=== PATIENT | male | born 1970 | race Caucasian/White ===

== ENCOUNTER 2021-01-22 04:10 | Inpatient (IN) | payer OTHER ==
[~2021-01-22] VITALS: Ht 175.3 cm; Wt 83.9 kg
--- NOTE | ~2021-01-22 | OP ---
[address] [address] OPERATIVE REPORT Name: YOGI VALADEZ Room: [address] IN M.R.#: [id number] Admission: 01/22/21 Attend Phys: Joshua Fields MD Discharge: Date of : 70 Report #: [id number] THIS REPORT FOR: cc: Physician not on staff Physician not on staff Leonard Cardozo MD ~ DATE OF SURGERY: 01/23/2021 PREOPERATIVE DIAGNOSIS: A 4 mm mid left ureteral stone. POSTOPERATIVE DIAGNOSIS: A 4 mm distal left ureteral stone. PROCEDURES: Cystoscopy, left retrograde pyelogram, left ureteroscopy with ureteroscopic stone extraction, placement of left ureteral stent with attached string. STAFF SURGEON: Leonard Cardozo MD HOUSEHOLD PERSONAL ASSISTANT: None. ANESTHESIA: General. ESTIMATED BLOOD LOSS: None. COMPLICATIONS: None. SPECIMENS: Left ureteral stone fragment. DRAINS: A 28 cm x 4.8-Singaporean left ureteral stent with attached string. INDICATIONS FOR PROCEDURE: A 50-year-old white male presented with left-sided flank pain. CT scan confirmed a 4 mm stone in the proximal to mid left ureter. Pain has improved overnight. He has not documented passing and he was counseled regarding treatment options, elected for definitive cystoscopy, left retrograde pyelogram, left ureteroscopy, possible holmium laser lithotripsy, possible placement of left ureteral stent. After risks and benefits of the procedure explained and informed consent was obtained. DESCRIPTION OF PROCEDURE: The patient was taken to the operating room comfortably placed in the dorsal lithotomy position under adequate general anesthesia. He was sterilely prepped and draped in standard fashion exposing only genitalia. He received his antibiotic therapy as prescribed. Appropriate timeout was carried out and all were in agreement for left-sided stone management. A 22-Singaporean cystoscope was placed in the urethra. Anterior urethra normal, sphincter intact. Prostate showed some minimal hyperplasia. Bladder was systematically viewed. Both ureteral [place] [address] OPERATIVE REPORT Name: YOGI VALADEZ Room: [address] IN M.R.#: [id number] Admission: 01/22/21 Attend Phys: Joshua Fields MD Discharge: Date of : 70 Report #: [id number] bladder calculi seen or formed. Bladder mucosa was smooth without any irregularity. An 8-Singaporean cone-tipped catheter placed in the left ureteral orifice and a retrograde pyelogram showing a filling defect near the ureterovesical junction with dilation more proximally. An 0.035 Glidewire was advanced up the left ureter at the level of kidney. The cystoscope was removed and a 5-Singaporean tapered to a 6.5-Singaporean Muro semi-rigid ureteroscope advanced through the urethra into the transmural ureter up the left ureter, identifying the stone. Cystoscope was tapered, slowly advanced the ureteroscope up the left ureter above the pelvis and mid ureter verifying no other stones present. I used the scope to dilate the transmural ureter slightly. Ureteroscope was then brought down back to the scope, able to basket with a 2.4 Singaporean flat wire basket, gently removed it without difficulty. The cystoscope was backloaded over the guidewire and a 28 cm x 4.8-Singaporean ureteral stent was put in place and positioned with the upper part of the stent at the level of the kidney and the lower part of the stent in the bladder. He tolerated extremely well. Bladder was drained. String left attached, secured to the outside of the phallus with a Tegaderm. Lidocaine jelly was placed in the urethra. He was extubated in the operating room, transferred to [facility] with assistance and went to recovery in stable condition. By: [id number] [id number] Consuelo Cardozo MD /madelyn
[2021-01-22 04:32] VITALS: BP 161/90
[2021-01-22] MEDS ORDERED: CARVEDILOL12.5 MG PO (04:53)
[2021-01-22] MEDS ORDERED: BRILINTA90 MG PO (04:55)
[2021-01-22] MEDS ORDERED: LISINOPRIL10 MG PO (04:55)
[2021-01-22] MEDS ORDERED: FENOFIBRATE150 MG PO (04:56)
[2021-01-22] MEDS ORDERED: OMEPRAZOLE40 MG PO (04:56)
[2021-01-22] MEDS ORDERED: CHILDREN'S ASPI81 M1 PO (04:56)
[2021-01-22] MEDS ORDERED: PRALUENT P75 MG/1 ML (05:00)
[2021-01-22] MEDS ORDERED: OMNIPOD1 EACH SUBQ (05:03)
[2021-01-22 05:08] LABS: ABSOLUTE BASOPHILS 0.2 thou/uL (0.0-0.2); ABSOLUTE EOSINOPHILS 0.5 thou/uL (0.0-0.7); ABSOLUTE LYMPHOCYTES 2.3 thou/uL (0.8-5.3); ABSOLUTE MONOCYTES 1.1 thou/uL (0.0-1.2); ABSOLUTE NEUTROPHILS 9.1 thou/uL (1.6-8.1); BASOPHILS 1.2 %; EOSINOPHILS 3.7 %; LYMPHOCYTES 17.5 %; MCH 28.6 pg (26.0-34.0); MCHC 35.5 g/dL (28.0-37.0); MCV 80.7 fL (80.0-100.0); MONOCYTES 8.3 %; NUCLEATED RBCS 0 /100WBC; PLATELET COUNT* 369 thou/uL (150-400); POLYS 69.3 %; RBC 5.58 mil/uL (4.50-6.00); RDW-CV 13.9 % (10.5-14.5); WBC 13.1 thou/uL (4.0-11.0)
[2021-01-22 05:14] LABS: CALCIUM 9.4 mg/dL (8.5-10.1); CREATININE 2.3 mg/dL (0.6-1.3); POTASSIUM 3.5 mmol/L (3.5-5.1)
[2021-01-22 05:19] LABS: ALBUMIN 3.8 g/dL (3.4-5.0); TOTAL BILIRUBIN 0.9 mg/dL (<0.1-1.0); TOTAL PROTEIN 7.7 g/dL (6.4-8.2)
[2021-01-22 05:55] LABS: URINE BILIRUBIN NEGATIVE (Negative); URINE BLOOD 3+ (Negative); URINE CLARITY CLEAR; URINE COLOR YELLOW; URINE GLUCOSE-RANDOM 3+ (Negative); URINE KETONES TRACE (Negative); URINE LEUKOCYTES-REFLEX NEGATIVE (Negative); URINE NITRITE-REFLEX NEGATIVE (Negative); URINE PROTEIN TRACE (Negative)
[2021-01-22 06:25] LABS: HYALINE CASTS 0-3 Few /LPF (None Seen); MUCUS 0-3 Light strn/LPF (None Seen); SQUAMOUS 0-3 Few /LPF (0-3)
[2021-01-22 06:26] LABS: BACTERIA-REFLEX None Seen /HPF (None Seen); CRYSTALS None Seen /LPF (None Seen); URINE RBC >20 Many /HPF (0-2); URINE WBC-REFLEX None Seen /HPF (0-5)
[2021-01-22 10:10] LABS: CALCIUM 7.9 mg/dL (8.5-10.1); POTASSIUM 3.8 mmol/L (3.5-5.1)
[2021-01-22 10:55] VITALS: BP 143/88
--- NOTE | 2021-01-22 14:56 | EKG ---
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 : 1970 Requested By: Beth Drake Order Number: [id number] MD: Julio Cesar Scott Measurements Intervals [place] Rate: 94 P: 7 IN: 146 QRS: 0 QRSD: 92 T: 133 QT: 451 QTc: 565 Interpretive Statements Sinus rhythm Inferior infarct, old Lateral leads are also involved Prolonged QT interval No previous ECG available for comparison Electronically Signed On 01-22-2021 14:55:54 CDT by Julio Cesar Scott [email or web address] <ELECTRONICALLY SIGNED> By: Julio Cesar Scott MD, [facility] 01/22/21 1455 0444 0444 Julio Cesar Scott MD, [facility] /EPI
[2021-01-22 18:45] VITALS: BP 145/80
[2021-01-22 21:08] VITALS: BP 159/93
[2021-01-23 04:53] LABS: HEMATOCRIT 38.1 % (42.0-52.0); MCH 28.4 pg (26.0-34.0); MCHC 35.2 g/dL (28.0-37.0); MCV 80.5 fL (80.0-100.0); MPV 7.8 fl. (7.2-11.1); RBC 4.73 mil/uL (4.50-6.00); RDW-CV 13.8 % (10.5-14.5); WBC 11.3 thou/uL (4.0-11.0)
[2021-01-23 05:09] LABS: HEMOGLOBIN 13.4 gm/dL (14.0-18.0)
[2021-01-23 05:58] LABS: ALBUMIN 3.1 g/dL (3.4-5.0); CALCIUM 7.9 mg/dL (8.5-10.1); MAGNESIUM 1.6 mg/dL (1.8-2.4); POTASSIUM 3.4 mmol/L (3.5-5.1); TOTAL BILIRUBIN 0.8 mg/dL (<0.1-1.0); TOTAL PROTEIN 6.6 g/dL (6.4-8.2)
--- NOTE | 2021-01-23 07:51 | NUR ---
PATIENT HAS RESTED WELL THROUGHOUT MOST OF THE NIGHT. VSS ON RA. MEDICATIONS GIVEN ORDERED AND CHARTED. PATIENT HAS REMAINED NPO SINCE MIDNIGHT. PATIENT STATES THIS AM THAT PAIN IS MUCH BETTER AND HE FEELS LIKE THE KIDNEY STONE HAS MOVED DOWN NEAR BLADDER. IV IN RIGHT AC-NS @ 150ML/HR. AT BEDSIDE. PATIENT INSTRUCTED TO USE CALL LIGHT WHEN NEEDING ASSISTANCE. HOURLY ROUNDS MADE. WILL CONTINUE WITH PLAN OF CARE AND NURSING TO MONITOR.
[2021-01-23 08:25] VITALS: BP 109/65
[2021-01-23 14:19] LABS: MAGNESIUM 2.2 mg/dL (1.8-2.4)
[2021-01-23 14:20] LABS: POTASSIUM 4.9 mmol/L (3.5-5.1)
[2021-01-23 15:40] VITALS: BP 111/95
--- NOTE | 2021-01-23 16:05 | NUR ---
POC IS FOR PT TO HAVE KIDNEY STONES REMOVED TODAY, PT WAS AT PROCEEDURE WHEN CM ATTEMPTED TO COMPLETE ASSESSMENT. ALSO, PT WILL NEED CT W/CONTRAST ONCE RENAL FUNCTION HAS IMPROVED. CM TO CONT TO FOLLOW
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
--- NOTE | 2021-01-23 17:48 | NUR ---
PATIENT HAS REMAINED A&OX4, PLEASANT AND COOPERATIVE WITH CARES THIS SHIFT. PATIENT RECEIVED PRN PAIN MEDICATION THIS MORNING AND HAS DENIED ANY SINCE, WELL N/V. POTASSIUM REPLACED VIA IV THIS SHIFT. PATIENT CURRENTLY OFF UNIT FOR PROCEDURE.
--- NOTE | 2021-01-23 17:52 | NUR ---
PATIENT HAS REMAINED A&OX4, PLEASANT AND COOPERATIVE WITH CARES THIS SHIFT. SBFT COMPLETED THIS SHIFT. PATIENT HAS DENIED ANY PAIN/N/V. FLUIDS AND INSULIN ADMINISTERED ORDERED, WITH EXCEPTION OF PATIENT DECLINING INSULIN WHILE NPO. PATIENT CURRENTLY SITTING UP IN BED EATING DINNER. CALL LIGHT AND FREQUENTLY USED ITEMS WITHIN REACH.
[2021-01-23 21:24] VITALS: BP 116/62
[2021-01-24 00:18] VITALS: BP 110/63
[2021-01-24 04:23] VITALS: BP 119/63
[2021-01-24 06:22] LABS: HEMATOCRIT 35.8 % (42.0-52.0); HEMOGLOBIN 12.4 gm/dL (14.0-18.0); MCH 28.3 pg (26.0-34.0); MCHC 34.6 g/dL (28.0-37.0); MCV 81.9 fL (80.0-100.0); MPV 7.9 fl. (7.2-11.1); RBC 4.37 mil/uL (4.50-6.00); RDW-CV 13.9 % (10.5-14.5); WBC 8.8 thou/uL (4.0-11.0)
[2021-01-24 06:39] LABS: CALCIUM 7.5 mg/dL (8.5-10.1); CREATININE 2.1 mg/dL (0.6-1.3); POTASSIUM 4.2 mmol/L (3.5-5.1)
--- NOTE | 2021-01-24 07:48 | NUR ---
PATIENT HAS SLEPT WELL THROUGHOUT THE NIGHT. VSS ON RA. MEDICATIONS GIVEN ORDERED AND CHARTED. PATIENT DOES HAVE SOME RIGHT FLANK PAIN AND PRESSURE WHEN HE URINATES. PATIENT HAS HAD SOME URINE INCONTINENCY OF URINE SINCE URETERAL STENT PLACED. IV IN RIGHT AC-NS @ 150ML/HR. NO BM THIS SHIFT. MOM GIVEN FOR CONSTIPATION. AT BEDSIDE. PATIENT INSTRUCTED TO USE CALL LIGHT WHEN NEEDING ASSISTANCE. HOURLY ROUNDS MADE. WILL CONTINUE WITH PLAN OF CARE AND NURSING TO MONITOR.
[2021-01-24 07:55] VITALS: BP 111/58
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
[2021-01-24 12:03] VITALS: BP 123/68
[2021-01-24] MEDS ORDERED: FLOMAX0.4 MG PO (14:33)
[2021-01-24 14:44] VITALS: BP 123/68
[2021-01-24 16:36] VITALS: BP 120/66
--- NOTE | 2021-01-24 17:04 | NUR ---
PT GIVEN DISCHARGE INFORMATION, CARE NOTES, AND PRESCRIPTIONS. IV REMOVED. PT BELONGINGS GATHERED. PT LEFT VIA WHEELCHAIR WITH NURSING STAFF TO HOME.
--- NOTE | 2021-01-25 21:06 | PATH ---
[address] [place] [address] PATHOLOGY RPT PROCEDURE Name: RORYYOGI Room: [address] IN M.R.#: [id number] Admission: 01/22/21 Date of : 70 Discharge: 01/24/21 Report #: [id number] Path Case #: [id number] [facility] Accession Number: [id number] . 01 Material submitted: . ureter - LEFT URETERAL STONE. Modifiers: left . 01 Clinical history: . CYSTO W/URETEROSCOPY, STONE MANIPULATION, STENT RENAL FAILURE, SBO, URETERAL STONE . 02 Diagnosis: Calculus, ureteral stone, removal: - Calculi/ureterolithiasis (gross diagnosis only). - Specimen forwarded for stone analysis, results to be reported in an addendum when available. [facility] 01/25/2021 1148 Local . 02 Electronically signed: . Mark Deluca MD, Pathologist NPI- [id number] . 01 Gross description: . The specimen is received fresh, labeled "Yogi Holloway, ureteral stone". The specimen consists of a 0.4 x 0.3 x 0.3 cm yellow-brown calculus. The specimen is forwarded to sendouts for further processing. ([facility] [place]; 01/25/2021) [facility] 01/25/2021 0907 Local . 02 Pathologist provided ICD-10: N20.1 . 02 CPT . 943993 Specimen Comment: A courtesy copy of this report has been sent to [phone] Specimen Comment: [phone] Specimen Comment: Report sent to / DR ONEILL Performed at: 01 [facility] [address] [place] [address] [id number] MD Quinton Cornell MD Phone: [phone] Performed at: [address] [id number] MD Darrel Dougherty MD Phone: [phone]
== END 2021-01-24 18:29 | disposition home or self-care (01) | DRG 659 ==
LOC: M.ERS 04:10 → M.TBA-ER 07:12 → M.3W 19:23
PROVIDERS: Emergency Medicine; Family Medicine; Internal Medicine; Physician Assistant; ADMIT Internal Medicine; ATTEND Internal Medicine
PROC: 0TC78ZZ Extirpation of Matter from Left Ureter, Via Natural or Artificial Opening Endoscopic (ICD-10-PCS; principal; 2021-01-23)
PROC: BT1F1ZZ Fluoroscopy of Left Kidney, Ureter and Bladder using Low Osmolar Contrast (ICD-10-PCS; principal; 2021-01-23)
PROC: 0T778DZ Dilation of Left Ureter with Intraluminal Device, Via Natural or Artificial Opening Endoscopic (ICD-10-PCS; principal; 2021-01-23)
DX: N13.2 Hydronephrosis with renal and ureteral calculous obstruction (principal); R65.11 Systemic inflammatory response syndrome (SIRS) of non-infectious origin with acute organ dysfunction; K56.609 Unspecified intestinal obstruction, unspecified as to partial versus complete obstruction; N17.0 Acute kidney failure with tubular necrosis; I25.10 Atherosclerotic heart disease of native coronary artery without angina pectoris; I10 Essential (primary) hypertension; F43.10 Post-traumatic stress disorder, unspecified; R79.89 Other specified abnormal findings of blood chemistry; N13.9 Obstructive and reflux uropathy, unspecified; E11.43 Type 2 diabetes mellitus with diabetic autonomic (poly)neuropathy; K31.84 Gastroparesis; E78.5 Hyperlipidemia, unspecified; Z20.822 Contact with and (suspected) exposure to COVID-19; I25.2 Old myocardial infarction; Z95.5 Presence of coronary angioplasty implant and graft; Z79.82 Long term (current) use of aspirin; Z79.4 Long term (current) use of insulin; Z79.899 Other long term (current) drug therapy; Z88.5 Allergy status to narcotic agent; Z91.018 Allergy to other foods